=== PATIENT | female | born 1975 | race Asian ===

== ENCOUNTER → 2017-05-26 | Outpatient (CLI) | payer OTHER | END | disposition home or self-care (01) | LOC: EMPHLTH 09:41 | PROVIDERS: ATTEND Internal Medicine | DX: Z02.1 Encounter for pre-employment examination (principal) | CPT/HCPCS: 86706; 86735; 86762; 86765; 86787 ==

== ENCOUNTER → 2019-04-15 | Outpatient (CLI) | payer OTHER | END | disposition home or self-care (01) | LOC: LABPV 11:15 | PROVIDERS: ATTEND Family Medicine | DX: M79.605 Pain in left leg (principal); M25.552 Pain in left hip; M25.562 Pain in left knee; M25.572 Pain in left ankle and joints of left foot | CPT/HCPCS: 73503 ==